=== PATIENT | female | born 1975 | race Native Hawaiian/Other Pacific Islander ===

== ENCOUNTER 2017-07-19 03:35 | Emergency (ER) | payer OTHER ==
[~2017-07-19] VITALS: Ht 170.2 cm; Wt 90.7 kg
[2017-07-19 04:02] LABS: PLATELET COUNT 371 K/uL (152-353)
[2017-07-19 04:19] LABS: POTASSIUM 3.8 mmol/L (3.6-5.2)
[2017-07-19 05:21] VITALS: BP 125/80; TEMP 98.2
== END 2017-07-19 05:22 | disposition home or self-care (01) ==
LOC: ED 03:35
DX: R11.10 Vomiting, unspecified (principal); R07.89 Other chest pain
CPT/HCPCS: 36415; 80053; 82550; 84484; 85027; 85610; 85730; 93005; 96365; 96374; 99284; J2405

== ENCOUNTER 2019-01-21 18:04 | Emergency (ER) | payer OTHER ==
[~2019-01-21] VITALS: Ht 167.6 cm; Wt 88.9 kg
[2019-01-21 20:25] LABS: PLATELET COUNT 286 K/uL (152-353)
[2019-01-21 20:31] LABS: POTASSIUM 4.1 mmol/L (3.6-5.2); SODIUM 138 mmol/L (136-145)
[2019-01-22 00:34] VITALS: BP 105/74; TEMP 98.4
== END 2019-01-22 00:34 | disposition home or self-care (01) ==
LOC: ED 18:04
PROVIDERS: Emergency Medicine
DX: E86.0 Dehydration (principal); K52.89 Other specified noninfective gastroenteritis and colitis
CPT/HCPCS: 36415; 80053; 81000; 82150; 83690; 84484; 85027; 96374; 96375; 96376; 99284; J1885; J2405; J3490

== ENCOUNTER 2020-02-27 00:28 | Emergency (ER) | payer OTHER | END 2020-02-27 00:45 | disposition home or self-care (01) | LOC: ED 00:28 | DX: R06.02 Shortness of breath (principal) | CPT/HCPCS: 99281 ==

== ENCOUNTER 2020-06-02 13:44 | Outpatient (CLI) | payer OTHER | END 2020-06-02 19:50 | disposition home or self-care (01) | LOC: MAMMO 13:44 | PROVIDERS: ATTEND Obstetrics & Gynecology | DX: Z12.31 Encounter for screening mammogram for malignant neoplasm of breast (principal) ==

== ENCOUNTER 2020-10-11 13:51 | Outpatient (CLI) | payer OTHER | END 2020-10-11 19:04 | disposition home or self-care (01) | LOC: MRI 13:51 | PROVIDERS: ATTEND Orthopaedic Surgery | DX: M25.562 Pain in left knee (principal); M25.561 Pain in right knee; M17.0 Bilateral primary osteoarthritis of knee; S83.242A Other tear of medial meniscus, current injury, left knee, initial encounter ==

== ENCOUNTER 2020-11-13 10:53 | Outpatient (CLI) | payer OTHER | END 2020-11-13 22:17 | disposition home or self-care (01) | LOC: MRI 10:53 | PROVIDERS: ATTEND Orthopaedic Surgery | DX: M25.562 Pain in left knee (principal); M22.02 Recurrent dislocation of patella, left knee; M25.561 Pain in right knee; M17.0 Bilateral primary osteoarthritis of knee; S82.109A Unspecified fracture of upper end of unspecified tibia, initial encounter for closed fracture; S80.02XA Contusion of left knee, initial encounter; S80.01XA Contusion of right knee, initial encounter ==

== ENCOUNTER 2021-08-27 15:07 | Outpatient (CLI) | payer OTHER | END 2021-08-27 19:52 | disposition home or self-care (01) | LOC: RAD 15:07 | PROVIDERS: ATTEND Nurse Practitioner Family | DX: M79.604 Pain in right leg (principal); M25.561 Pain in right knee ==

== ENCOUNTER 2022-04-19 09:26 | Outpatient (CLI) | payer OTHER | END 2022-04-19 21:19 | disposition home or self-care (01) | LOC: MAMMO 09:26 | PROVIDERS: ATTEND Nurse Practitioner Family | DX: Z12.31 Encounter for screening mammogram for malignant neoplasm of breast (principal) ==